=== PATIENT | male | born 1985 | race Caucasian/White ===

== ENCOUNTER 2022-06-27 11:15 | Outpatient (CLI) | payer OTHER, SELFPAY ==
--- NOTE | ~2022-06-27 | CT_ITS ---
EXAMINATION: CT soft tissue neck w con DATE: 06/27/2022 12:02 INDICATION: Thyroglossal duct cyst. TECHNIQUE: Computed tomography (CT) of the neck was performed with 75 mL Omnipaque-350 intravenous co ntrast. Automated exposure control and iterative reconstruction technique were employed. The dose-carline gth product was 624.73 mGy-cm. COMPARISON: None FINDINGS: There are surgical clips in the anterior neck. There are no pathologically enlarged lymph n odes. The cervical carotid arteries are normal. There is kyphosis and mild spondylosis of cervical sp ine. There is extensive dental disease. IMPRESSION: 1. Surgical clips in the anterior neck. No abnormal mass identified. 2. Extensive dental disease. Reviewed, dictated and finalized at location A.
[2022-06-27 11:52] LABS: Estimated Glomerular Filt Rate > 60
== END 2022-06-27 11:16 | disposition home or self-care (01) ==
PROVIDERS: PCP Family Medicine; Visit Provider Otolaryngology
DX: Q89.2 Congenital malformations of other endocrine glands (principal); K08.89 Other specified disorders of teeth and supporting structures
CPT/HCPCS: 70491; Q9967